=== PATIENT | male | born 1945 | race Two or more races ===

== ENCOUNTER 2019-02-10 12:50 | Emergency (ER) | payer OTHER ==
[~2019-02-10] VITALS: Ht 165.1 cm; Wt 88.0 kg
[~2019-02-10 12:50] MED LIST: CARDURA8 MG PO; METFORMIN HCL1000 MG PO
[2019-02-10] MEDS ORDERED: PRINIVIL20 MG PO (13:16)
[2019-02-10] MEDS ORDERED: ASPIR 8181 MG PO (13:16)
[2019-02-10] MEDS ORDERED: LASIX20 MG PO (13:17)
== END 2019-02-10 15:09 | disposition home or self-care (01) ==
LOC: ER 12:50
DX: M54.89 Other dorsalgia (principal)